=== PATIENT | male | born 1965 ===

== ENCOUNTER 2023-06-06 10:13 | Outpatient (OUT) | payer MEDICARE, SELFPAY ==
--- NOTE | 2023-06-06 10:30 | XR_ITS ---
The [address] [address] Patient Name: AMAURY AVENDAÑO MRN: [id number] date: 1965 Sex: M Assigned Patient Location: [facility] Current Patient Location: [facility] Accession/Order Number: [id number] Exam Date: 06/06/2023 10:30 Report Date: 06/06/2023 11:22 At the request of: DAVID CASTREJON Procedure: XR ankle RT min 3V PROCEDURE: XR ankle RT min 3V COMPARISON: 04/27/2023 HISTORY: Closed avulsion fracture of right ankle S82.891A FINDINGS: BONES:Again demonstrated is avulsion fracture along the dorsal distal talus stable from the CT exam. No new fracture or dislocation. Moderate enthesopathic spurring the calcaneus at the Achilles and plantar insertions SOFT TISSUES:Negative. No visible soft tissue swelling. EFFUSION:None visible. OTHER: Negative. XR/XR ankle RT min 3V IMPRESSION: Stable avulsion fracture dorsal distal talus Electronically authenticated by: DEWAYNE LOREDO Date: 06/06/2023 11:22
== END 2023-06-06 10:14 | disposition home or self-care (01) ==
LOC: RAD 10:13
PROVIDERS: Visit Provider Orthopaedic Surgery
DX: S82.891A Other fracture of right lower leg, initial encounter for closed fracture (principal)
CPT/HCPCS: 73610

== ENCOUNTER 2023-07-04 09:29 | Outpatient (OUT) | payer MEDICARE, MEDICAID, SELFPAY ==
--- NOTE | 2023-07-04 09:43 | XR_ITS ---
The [address] [address] Patient Name: AMAURY AVENDAÑO MRN: [id number] date: 1965 Sex: M Assigned Patient Location: [facility] Current Patient Location: [facility] Accession/Order Number: [id number] Exam Date: 07/04/2023 09:55 Report Date: 07/04/2023 11:23 At the request of: DAVID CASTREJON Procedure: XR ankle RT min 3V STUDY: XR ankle RT min 3V, [id number] HISTORY: Closed Avulsion Fracture Right Ankle S82.891A COMPARISON: Right ankle x-rays 06/06/2023 and 04/27/2023.. FINDINGS/IMPRESSION: Small focus of ossification in the tip of the lateral malleolus is similar compared with 06/06/2023. Small avulsion fracture of the dorsal talus, similar. No new or worsening osseous abnormality. No lucent lesion of the talar dome. There is pes planus. Medium-sized calcaneal spur and moderate Achilles insertional enthesopathy. Electronically authenticated by: MEÑO WILSNO Date: 07/04/2023 11:23
--- NOTE | 2023-07-04 09:43 | XR_ITS ---
The [address] [address] Patient Name: AMAURY AVENDAÑO MRN: [id number] date: 1965 Sex: M Assigned Patient Location: [facility] Current Patient Location: [facility] Accession/Order Number: [id number] Exam Date: 07/04/2023 09:55 Report Date: 07/04/2023 11:35 At the request of: DAVID CASTREOJN Procedure: XR knee RT 4V EXAM: Right knee HISTORY: . Acute Pain Of right Knee M25.561 . COMPARISON: None TECHNIQUE: 4 views FINDINGS: No fracture or dislocation of the right knee is noted. Joint spaces well-maintained. Surrounding soft tissues are unremarkable. XR/XR knee RT 4V IMPRESSION: Negative right knee. Electronically authenticated by: DEWAYNE AVENDAÑO Date: 07/04/2023 11:35
== END 2023-07-04 09:30 | disposition home or self-care (01) ==
LOC: LAB 09:33 → RAD 09:35
PROVIDERS: Visit Provider Orthopaedic Surgery
DX: S82.891A Other fracture of right lower leg, initial encounter for closed fracture (principal); M25.561 Pain in right knee
CPT/HCPCS: 73564; 73610